=== PATIENT | male | born 1995 | race Caucasian/White ===

== ENCOUNTER 2022-08-22 18:00 | Emergency (ER) | payer OTHER, SELFPAY ==
[2022-08-22 18:08] VITALS: BP 123/57; PULSE 76; RESP 20; TEMP 36.8; O2SAT 100
--- NOTE | 2022-08-22 18:20 | ED.WOUNDLAC ---
HPI - Wound/Laceration General Chief Complaint: Wound/Laceration Stated Complaint: Laceration to Right Arm/Right Leg History of Present Illness HPI narrative: PATIENT PRESENTS WITH EVALUATION FOR MULTIPLE PUNCTURE WOUNDS FROM GLASS. PATIENT WAS REPLACING GLASS AT [employer] AND GLASS SHATTERED. INCIDENT OCCURRED APPROX 4 HOURS AGO. BLEEDING CONTROLED UNSURE OF LAST TDAP. Related Data Allergies Allergy/AdvReac Type Severity Reaction Status Date / Time Penicillins Allergy Unknown Verified 07/14/17 08:36 Review of Systems Review of Systems: CONSTITUTIONAL: DENIES FEVER, CHILLS, OR SWEATS. EYES: DENIES VISUAL CHANGES, REDNESS, OR DISCHARGE. ENT: DENIES RHINORRHEA, CONGESTION, SORE THROAT, OR OTALGIA. CARDIOVASCULAR: DENIES CHEST PAIN, PALPITATIONS, OR EDEMA. RESPIRATORY: DENIES COUGH OR DYSPNEA. GASTROINTESTINAL: DENIES ABDOMINAL PAIN, NAUSEA, VOMITING, OR DIARRHEA. GENITOURINARY: DENIES DYSURIA OR HEMATURIA. SKIN: DENIES RASH OR ITCHING. MUSCULOSKELETAL: DENIES BACK PAIN, JOINT PAIN, OR MYALGIA. NEUROLOGIC: DENIES HEADACHE, NUMBNESS, OR WEAKNESS. PSYCHIATRIC: DENIES ANXIETY OR DEPRESSION. [facility] Family History Family History (Updated 07/14/17 @ 08:37 by DOCTOR UNKNOWN) Other Diabetes mellitus Family history of hypercholesterolemia Hypertension Social History Social History Smoking status: Never smoker Comments AT TIME OF SIGNATURE, AGREE WITH NURSING PAST MEDICAL, SURGICAL, SOCIAL AND FAMILY HISTORY. THERE IS NO RELEVANT FAMILY HISTORY PERTINENT TO THE PRESENTING COMPLAINT Exam Narrative: GENERAL: WELL-APPEARING, WELL-NOURISHED, AND IN NO ACUTE DISTRESS. HEAD: NORMOCEPHALIC, ATRAUMATIC. EYES: PERRLA AND EOMI. ENT: NARES CLEAR, NO RHINORRHEA OR EPISTAXIS. MUCOUS MEMBRANES MOIST. NECK: SUPPLE. CHEST: CLEAR TO AUSCULTATION. NO RESPIRATORY DISTRESS. HEART: REGULAR RATE AND RHYTHM. NO MURMUR HEARD. NORMAL PERIPHERAL PULSES. ABDOMEN: SOFT, NONTENDER, NONDISTENDED, NORMAL ACTIVE BOWEL SOUNDS. EXTREMITIES: NORMAL RANGE OF MOTION. NO EDEMA. SKIN: WARM, DRY, NO RASH. MULTIPLE PUNCTURE WOUNDS TO RIGHT LOWER LEG AND RIGHT ARM 1CM SKIN TEAR TO RIGHT UPPER ARM NO REPAIR NEEDED TO ANY WOUNDS NEURO: NO FOCAL DEFICITS. ALERT AND ORIENTED X3. ADÁN COMA SCALE EYE OPENING: SPONTANEOUS 4 ADÁN COMA SCALE MOTOR: OBEYS COMMANDS 6 ADÁN COMA SCALE VERBAL: ORIENTED 5 ADÁN COMA SCALE TOTAL 15 Course Course Level of Care: Express Care Visit Vital Signs Vital signs: Vital Signs Temperature 36.8 C 08/22/22 18:08 Pulse Rate 76 08/22/22 18:08 Respiratory Rate 20 08/22/22 18:08 Blood Pressure 123/57 L 08/22/22 18:08 Pulse Oximetry 100 08/22/22 18:08 Oxygen Delivery Room Air 08/22/22 18:08 Temperature 36.8 C 08/22/22 18:08 Pulse Rate 76 08/22/22 18:08 Respiratory Rate 20 08/22/22 18:08 Blood Pressure 123/57 L 08/22/22 18:08 Pulse Oximetry 100 08/22/22 18:08 Oxygen Delivery Room Air 08/22/22 18:08 Discharge Plan Discharge Clinical Impression: Puncture wound, Skin tear of right upper arm without complication Patient Disposition: Home, Self-Care Condition: Stable Instructions: Puncture Wound (DC), Skin Tear (ED) Additional Instructions: WASH WOUNDS WITH WARM ANTIBACTERIAL SOAP AND WATER APPLY TRIPLE ANTIBIOTIC OINTMENT TO AREA FOLLOW UP WITH PCP IN 2--3 DAYS FOR RE EVALUATION IF ANY NEW OR WORSENING OF SYMPTOMS GO TO ER IMMEDIATELY Follow-up/Referrals: PHYSICIAN NOT ON STAFF,NONSTAFF [Primary Care Provider] - Stand Alone Forms: Work/School Release IP
[2022-08-22] MEDS: TETANUS,DIPHTHERIA,AC PERTUSSIS ADULT (0.5 ML) BOOSTRIX IM (18:31)
== END 2022-08-22 18:46 | disposition home or self-care (01) ==
PROVIDERS: Emergency Provider Nurse Practitioner Family
DX: S41.111A Laceration without foreign body of right upper arm, initial encounter (principal); W25.XXXA Contact with sharp glass, initial encounter; S81.831A Puncture wound without foreign body, right lower leg, initial encounter; S41.131A Puncture wound without foreign body of right upper arm, initial encounter; Z23 Encounter for immunization
CPT/HCPCS: 90471; 90715; 99202; G0463